=== PATIENT | female | born 1935 | race Hispanic/Latino ===

== ENCOUNTER 2017-07-21 20:17 | Emergency (ER) | payer MEDICARE ==
[~2017-07-21 20:17] MED LIST: BACTRIM DS TAB1 EACH PO; CARVEDILOL12.5 MG PO
[2017-07-21 21:54] VITALS: BP 190/84
== END 2017-07-21 21:50 | disposition home or self-care (01) ==
LOC: FSED 20:17
DX: S60.222A Contusion of left hand, initial encounter (principal); W22.8XXA Striking against or struck by other objects, initial encounter; Y92.008 Other place in unspecified non-institutional (private) residence as the place of occurrence of the external cause
CPT/HCPCS: 99283

== ENCOUNTER 2017-09-22 23:06 | Inpatient (IN) | payer MEDICARE ==
[~2017-09-22] VITALS: Ht 160 cm; Wt 68.9 kg
[2017-09-22 23:42] LABS: BASOPHILS % 0.4 % (0.0-1.0); EOSINOPHILS # (AUTO) 0.2 (0.0-0.4); EOSINOPHILS % 2.3 % (0.0-6.0); HEMATOCRIT 40.6 % (34.2-44.1); HEMOGLOBIN 13.4 g/dL (12.0-16.0); LYMPHOCYTES # (AUTO) 0.5 (1.0-3.2); LYMPHOCYTES % 6.8 % (18.0-39.1); MEAN CORPUSCULAR HEMOGLOBIN 27.7 pg (28-32); MEAN CORPUSCULAR VOLUME 83.9 fL (81-99); MONOCYTES # (AUTO) 0.5 (0.2-0.8); MONOCYTES % 6.2 % (4.4-11.3); NEUTROPHILS # (AUTO) 6.2 (2.1-6.9); NEUTROPHILS % 83.9 % (38.7-80.0); PLATELET COUNT 223 x10e3/uL (140-360); RED BLOOD COUNT 4.84 x10e6/uL (3.6-5.1); RED CELL DISTRIBUTION WIDTH 14.2 % (11.7-14.4)
[2017-09-22 23:46] LABS: CLARITY,URINE HAZY (CLEAR); COLOR,URINE YELLOW (YELLOW)
[2017-09-22 23:47] LABS: BILIRUBIN,URINE 3+ (NEGATIVE); KETONES,URINE 1+ (NEGATIVE); LEUKOCYTE ESTERASE ,URINE 1+ (NEGATIVE); NITRITE,URINE NEGATIVE (NEGATIVE); PROTEIN,URINE DIPSTICK NEGATIVE (NEGATIVE); URINE UROBILINOGEN 0.2 mg/dL (0.2 - 1)
[2017-09-22] MEDS ORDERED: DIATRIZOATE MEGL/DIATRIZOA SOD 30 ML BTL PO ONE (23:52)
[2017-09-22 23:56] LABS: BACTERIA,URINE MANY /HPF; EPITHELIAL CELLS,URINE MODERATE /LPF; WBC,URINE (MAN) 21-50 /HPF (0-5)
[2017-09-23] VITALS (7 sets, daily range): BP systolic 129–155; BP diastolic 61–78
[2017-09-23 00:05] LABS: ALBUMIN 3.7 g/dL (3.5-5.0); ALBUMIN/GLOBULIN RATIO 0.9 (0.8-2.0); ALKALINE PHOSPHATASE 305 IU/L (40-150); AMYLASE 53 U/L (25-125); ANION GAP 12.6 mmol/L (8-16); BLOOD UREA NITROGEN 6 mg/dL (7-26); BUN/CREATININE RATIO 7 (6-25); CALCIUM 9.4 mg/dL (8.4-10.2); CARBON DIOXIDE 24 mmol/L (22-29); CHLORIDE 103 mmol/L (98-107); CREATININE, SERUM 0.83 mg/dL (0.57-1.11); EST GLOMERULAR FILTRATION RATE > 60 ML/MIN (60-); GLUCOSE 131 mg/dL (74-118); LIPASE 33 U/L (8-78); POTASSIUM 3.6 mmol/L (3.5-5.1); SODIUM 136 mmol/L (136-145)
[2017-09-23 00:37] LABS: ALANINE AMINOTRANSFERASE 245 IU/L (0-55)
--- NOTE | 2017-09-23 01:47 | Diagnostic Imaging Report ---
EXAM: CT ABDOMEN AND PELVIS with IV CONTRAST DATE: 09/23/2017 11:16 PM Time stamp on Exam: 0126 hours INDICATION: Fever, lower abdominal pain COMPARISON: None TECHNIQUE: The abdomen and pelvis were scanned using a multidetector helical scanner. Coronal and sagittal reformations were obtained. Routine protocol performed. IV Contrast: 100 cc Isovue-370 Oral Contrast: Gastrografin CTDIvol has been reviewed. It is below the limits set by the Radiation Protocol Committee (RPC). FINDINGS: LOWER THORAX: No consolidations LIVER: No masses BILIARY: Cholecystectomy. No ductal dilation. SPLEEN: No masses PANCREAS: No masses ADRENALS: No nodules KIDNEYS: Symmetric perfusion. No enhancing masses. No hydronephrosis. GI TRACT: Severe sigmoid colon diverticulosis with mild wall thickening and mild surrounding inflammation. No bowel obstruction. VESSELS: Unremarkable PERITONEUM/RETROPERITONEUM: No free air or fluid LYMPH NODES: No lymphadenopathy REPRODUCTIVE ORGANS: Unremarkable BLADDER: Decompressed SOFT TISSUES: Unremarkable BONES: No suspicious bone lesions. IMPRESSION: Findings are consistent with acute on chronic sigmoid colon diverticulitis. No abscess formation or free peritoneal air. Signed by: Dr. Cheryl Alonso M.D. on 09/23/2017 1:43 AM
[2017-09-23] MEDS ORDERED: MORPHINE SULFATE 2 MG/ML SYR IV PRN (02:00)
[2017-09-23] MEDS: ONDANSETRON HCL INJ 2 MG/ML VIAL IV PRN (02:40)
[2017-09-23] MEDS: METRONIDAZOLE 500MG/NS 100ML 100 ML IV SCH ×5 (02:40→23:28)
[2017-09-23] MEDS: SODIUM CHLORIDE 0.9% 1000ML 1,000 ML IV SCH ×4 (02:40→23:28)
[2017-09-23] MEDS ORDERED: SODIUM CHLORIDE 0.9% 50ML 50 ML ONE (02:46)
[2017-09-23] MEDS ORDERED: IOPAMIDOL 370 MG/ML 200 ML INFUS..BTL INJ ONE (02:47)
[2017-09-23] MEDS: LEVOFLOXACIN 500MG/D5W 100ML IV SCH (04:07)
[2017-09-23] MEDS: IBUPROFEN 400 MG TAB PO PRN ×2 (04:08→16:04)
[2017-09-23 04:15] LABS: PLATELET ESTIMATE ADEQUATE; PLATELET MORPHOLOGY COMMENT NORMAL; RBC MORPHOLOGY COMMENT NORMAL
[2017-09-23] MEDS: FAMOTIDINE 20 MG/2 ML VIAL IV SCH ×2 (10:00→20:21)
--- NOTE | 2017-09-23 10:17 | History and Physical ---
PRIMARY CARE PHYSICIAN: Dr. Enamorado. CHIEF COMPLAINT: Abdominal pain. HISTORY OF PRESENT ILLNESS: This is an 82-year-old woman with history of hypertension, now developing lower abdominal discomfort for the past day, prompting a visit to the hospital. She has some nausea. No diarrhea. Denies any fever, chills, sweats. Denies any headache. PAST MEDICAL HISTORY: Hypertension. PAST SURGICAL HISTORY 1. Breast biopsy, which was benign. 2. Tubal ligation. 3. Other GI procedure, which the patient does not recall, possibly EGD. ALLERGIES: PER ELECTRONIC MEDICAL RECORD. FAMILY/SOCIAL HISTORY: The patient is single. She has 4 sons. No alcohol, illicits or cigarettes. MEDICATIONS: Per electronic medical record. REVIEW OF SYSTEMS: Denies any dizziness, chest pain, shortness of breath, fever, chills, sweats, leg pain, back pain, headache, blurred vision. PHYSICAL EXAMINATION VITAL SIGNS: Reviewed. T-max 100.8. GENERAL: A tired-appearing woman resting in bed. HEENT: Anicteric. CARDIOVASCULAR: Normal S1 and S2. LUNGS: She has moderate breath sounds. ABDOMEN: Soft, nondistended. She has mild tenderness in the left lower quadrant. Negative Albert's sign. EXTREMITIES: No edema or calf tenderness. NEUROLOGIC: Alert and oriented times 3. She moves all extremities. SKIN: Dry. PSYCHIATRIC: Normal affect. LABS: Reviewed. MEDICATIONS: Reviewed. ASSESSMENT: This is an 82-year-old woman. 1. Fever. 2. Transaminitis. 3. Hyperbilirubinemia. 4. Acute sigmoid diverticulitis. 5. Urinary tract infection. 6. Left lower abdominal pain. PLAN 1. N.P.O. status. 2. IV fluids. 3. GI consultation. 4. Hepatitis panel. 5. Flagyl and Levaquin. 6. P.R.N. pain medication. 7. SCDs for DVT prophylaxis. 8. IV Pepcid. Job#: [id number]
--- NOTE | 2017-09-23 11:54 | Consultation ---
DATE OF CONSULTATION: September 23, 2017 This is an 82-year-old lady who presented to the hospital because of abdominal pain, which is mainly in the left lower quadrant area. The patient also has some fever and a little bit of diarrhea. The workup so far revealed that her CBC was normal, and her liver enzymes were elevated with AST of 158, ALT 245, and alk phos of 305. Bilirubin was also 4.7. She denies any nausea or vomiting along with this problem. Her hepatitis profile is pending. She did have a CT scan of the abdomen and pelvis on admission, which shows [id number] sigmoid diverticulitis. There is no abscess or perforation. As far as the liver is concerned, she is status post cholecystectomy, but there is no biliary dilatation. Her other medical problems are significant for history of hypertension, previous tubal ligation, also cholecystectomy. She said her last colonoscopy was quite some time ago, more than 10 years. ALLERGIES: NONE. SOCIAL HISTORY: No alcohol use. FAMILY HISTORY: Noncontributory. REVIEW OF SYSTEMS: Denies any chest pain or shortness of breath. Denies any dysphagia or odynophagia. Denies any dysuria or hematuria or any kind of syncopal episode. PHYSICAL EXAMINATION GENERAL: The patient is awake, alert, appears to be stable, not in acute distress at this point. VITAL SIGNS: Afebrile with stable vital signs. HEAD, EYES, EARS, NOSE AND THROAT: Normocephalic and atraumatic. Sclerae are mildly icteric. NECK: Supple. HEART: Regular. LUNGS: Clear. ABDOMEN: Soft. There is some tenderness mainly in the left lower quadrant area. There is no rebound or mass. EXTREMITIES: No clubbing. LAB VALUES: Significant for CBC is okay. Liver enzymes are as mentioned before. CAT scan is consistent with acute sigmoid diverticulitis. IMPRESSION 1. Sigmoid diverticulitis. 2. Elevated liver function tests. RECOMMENDATIONS: At this point, hepatitis profile is pending. The plan is to continue antibiotic for now. I will obtain an MRCP for further evaluation and follow labs. Job#: [id number] cc:MD NEYDA THAKUR MD
--- NOTE | 2017-09-23 16:10 | Diagnostic Imaging Report ---
EXAM: MRI MRCP WO DATE: 09/23/2017 9:09 AM INDICATION: Abdominal pain. COMPARISON: CT dated 09/23/2017 TECHNIQUE: MRCP protocol performed using1.5 Meri. Sequences obtained include axial T2 FRFSE FS, coronal and axial T2 SSFSE, SSFSE coronal spins. FINDINGS: The gallbladder is surgically absent. The common bile duct is normal in caliber measuring 0.6 cm. There are no filling defects or strictures. No intrahepatic biliary dilation. Within the limitations of the exam, the liver, spleen, pancreas and adrenal glands are unremarkable. No hydronephrosis. Possible small bilateral parapelvic renal cysts. No upper abdominal free fluid or lymphadenopathy. The soft tissues and bones are unremarkable. IMPRESSION: Unremarkable MRCP. No common bile duct dilatation or evidence of choledocholithiasis. Signed by: Dr. Bernardo Lai MD on 09/23/2017 4:07 PM
[2017-09-24] VITALS (7 sets, daily range): BP systolic 140–189; BP diastolic 60–85
[2017-09-24] MEDS: LEVOFLOXACIN 500MG/D5W 100ML IV SCH (02:26)
[2017-09-24 04:44] LABS: BASOPHILS % 0.8 % (0.0-1.0); EOSINOPHILS # (AUTO) 0.2 (0.0-0.4); EOSINOPHILS % 5.8 % (0.0-6.0); HEMATOCRIT 34.4 % (34.2-44.1); HEMOGLOBIN 11.1 g/dL (12.0-16.0); LYMPHOCYTES # (AUTO) 0.6 (1.0-3.2); LYMPHOCYTES % 15.9 % (18.0-39.1); MEAN CORPUSCULAR HEMOGLOBIN 27.9 pg (28-32); MEAN CORPUSCULAR HGB CONC 32.3 g/dL (31-35); MEAN CORPUSCULAR VOLUME 86.4 fL (81-99); MONOCYTES # (AUTO) 0.4 (0.2-0.8); MONOCYTES % 9.5 % (4.4-11.3); NEUTROPHILS # (AUTO) 2.6 (2.1-6.9); NEUTROPHILS % 67.7 % (38.7-80.0); PLATELET COUNT 184 x10e3/uL (140-360); RED BLOOD COUNT 3.98 x10e6/uL (3.6-5.1); RED CELL DISTRIBUTION WIDTH 14.4 % (11.7-14.4)
[2017-09-24 05:19] LABS: ALANINE AMINOTRANSFERASE 167 IU/L (0-55); ALBUMIN 2.8 g/dL (3.5-5.0); ALBUMIN/GLOBULIN RATIO 0.9 (0.8-2.0); ALKALINE PHOSPHATASE 244 IU/L (40-150); AMYLASE 36 U/L (25-125); ANION GAP 11.1 mmol/L (8-16); BLOOD UREA NITROGEN 7 mg/dL (7-26); BUN/CREATININE RATIO 11 (6-25); CALCIUM 8.4 mg/dL (8.4-10.2); CARBON DIOXIDE 23 mmol/L (22-29); CHLORIDE 109 mmol/L (98-107); CREATININE, SERUM 0.64 mg/dL (0.57-1.11); EST GLOMERULAR FILTRATION RATE > 60 ML/MIN (60-); GLUCOSE 84 mg/dL (74-118); LIPASE 24 U/L (8-78); POTASSIUM 3.1 mmol/L (3.5-5.1); SODIUM 140 mmol/L (136-145)
[2017-09-24] MEDS: METRONIDAZOLE 500MG/NS 100ML 100 ML IV SCH ×3 (06:00→18:00)
[2017-09-24] MEDS ORDERED: POTASSIUM CHLORIDE 20MEQ/100ML 200 ML IV ONE (06:45)
[2017-09-24 07:57] LABS: BILIRUBIN,URINE 1+ (NEGATIVE); CLARITY,URINE CLEAR (CLEAR); COLOR,URINE YELLOW (YELLOW); KETONES,URINE 2+ (NEGATIVE); LEUKOCYTE ESTERASE ,URINE TRACE (NEGATIVE); NITRITE,URINE NEGATIVE (NEGATIVE); PROTEIN,URINE DIPSTICK NEGATIVE (NEGATIVE); URINE UROBILINOGEN 0.2 mg/dL (0.2 - 1)
[2017-09-24 08:03] LABS: BACTERIA,URINE FEW /HPF
[2017-09-24 08:04] LABS: EPITHELIAL CELLS,URINE FEW /LPF; MUCUS,URINE MANY (RARE)
[2017-09-24] MEDS: FAMOTIDINE 20 MG/2 ML VIAL IV SCH ×2 (08:46→20:43)
[2017-09-24] MEDS: SODIUM CHLORIDE 0.9% 1000ML 1,000 ML IV SCH ×2 (09:59→17:59)
[2017-09-24] MEDS: LABETALOL HCL 5 MG/ML 20ML VIAL IV SCH ×2 (12:00→18:00)
--- NOTE | 2017-09-24 23:00 | Consultation ---
DATE OF CONSULTATION: September 24, 2017 GI CONSULT NOTE REASONS FOR CONSULTATION 1. Acute onset of lower abdominal pain for 2 days. 2. Fever times 2 days. 3. Acute abnormal liver enzymes. HISTORY OF PRESENT ILLNESS: [id number] very pleasant white female with past medical history of hypertension, who got admitted through the emergency room with 2 days' history of lower abdominal discomfort associated with some fever or chills. CT scan of the of the abdomen done that showed diverticulitis without any local complications. Blood work revealed abnormal liver enzymes. She is status post cholecystectomy. MRCP is negative for any biliary ductal obstruction, common bile duct 6 mm in maximum diameter. Patient is currently being treated with intravenous levofloxacin and metronidazole. In the last 24 hours, her fever has resolved. Abdominal pain has also disappeared. She was on clear liquid diet, which she tolerated well. Diet has been advanced to solid food this evening, which she tolerated it very well. Patient has had upper endoscopy and colonoscopy more than 10 years ago. She has no history of any viral hepatitis. REVIEW OF SYSTEMS: Twelve-point systems DICTATION CANCELLED (02:47) Job#: [id number]
[2017-09-25] VITALS (7 sets, daily range): BP systolic 149–199; BP diastolic 67–86
[2017-09-25] MEDS: LABETALOL HCL 5 MG/ML 20ML VIAL IV SCH ×2 (00:22→05:45)
[2017-09-25] MEDS: METRONIDAZOLE 500MG/NS 100ML 100 ML IV SCH ×2 (00:22→05:45)
[2017-09-25] MEDS: SODIUM CHLORIDE 0.9% 1000ML 1,000 ML IV SCH ×3 (01:53→18:02)
[2017-09-25] MEDS: LEVOFLOXACIN 500MG/D5W 100ML IV SCH (01:53)
[2017-09-25 04:50] LABS: ALBUMIN 2.8 g/dL (3.5-5.0); BILIRUBIN,DIRECT 4.1 mg/dL (0.0-0.5)
[2017-09-25 06:12] LABS: ANION GAP 11.3 mmol/L (8-16); BLOOD UREA NITROGEN 7 mg/dL (7-26); BUN/CREATININE RATIO 10 (6-25); CALCIUM 8.5 mg/dL (8.4-10.2); CARBON DIOXIDE 21 mmol/L (22-29); CHLORIDE 110 mmol/L (98-107); CREATININE, SERUM 0.68 mg/dL (0.57-1.11); EST GLOMERULAR FILTRATION RATE > 60 ML/MIN (60-); GLUCOSE 82 mg/dL (74-118); POTASSIUM 3.3 mmol/L (3.5-5.1); SODIUM 139 mmol/L (136-145)
[2017-09-25] MEDS: FAMOTIDINE 20 MG/2 ML VIAL IV SCH ×2 (09:02→21:10)
[2017-09-25] MEDS: IBUPROFEN 400 MG TAB PO PRN (09:06)
[2017-09-25] MEDS ORDERED: POTASSIUM CHLORIDE 20 MEQ TAB CR PO ONE (10:30)
[2017-09-25] MEDS ORDERED: METRONIDAZOLE 500 MG TAB PO SCH (12:30)
[2017-09-25] MEDS: ONDANSETRON HCL INJ 2 MG/ML VIAL IV PRN (12:31)
[2017-09-25] MEDS: METRONIDAZOLE 500 MG TAB PO SCH ×2 (18:02→22:54)
[2017-09-25] MEDS ORDERED: NIFEDIPINE CR 30 MG TAB PO ONE (21:00)
[2017-09-25] MEDS ORDERED: LABETALOL HCL 100 MG TAB PO SCH (21:00)
[2017-09-25] MEDS: NIFEDIPINE CR 30 MG TAB PO SCH (21:10)
[2017-09-25] MEDS: ALPRAZOLAM 0.5 MG TAB PO SCH (21:12)
[2017-09-25] MEDS: LABETALOL HCL 100 MG TAB PO SCH (21:12)
[2017-09-26] VITALS: BP 152/68
[2017-09-26] MEDS: LEVOFLOXACIN 500MG/D5W 100ML IV SCH (02:41)
[2017-09-26] MEDS: SODIUM CHLORIDE 0.9% 1000ML 1,000 ML IV SCH ×2 (02:41→09:03)
[2017-09-26] MEDS: METRONIDAZOLE 500 MG TAB PO SCH (05:52)
[2017-09-26 06:02] VITALS: BP 119/59
[2017-09-26] MEDS ORDERED: LABETALOL HCL100 MG PO (06:53)
[2017-09-26] MEDS ORDERED: FLAGYL500 MG PO (06:53)
[2017-09-26] MEDS ORDERED: PEPCID20 MG PO (06:53)
[2017-09-26] MEDS ORDERED: NIFEDIPINE ER30 M1 PO (06:53)
[2017-09-26] MEDS ORDERED: ALPRAZOLAM0.5 MG PO (06:53)
[2017-09-26 08:00] VITALS: BP 102/65
[2017-09-26 08:20] VITALS: BP 102/65
--- NOTE | 2017-09-26 08:28 | Progress Note ---
DATE: September 24, 2017 TIME: 7:15 a.m. OVERNIGHT: No events. REVIEW OF SYSTEMS: Denies any dizziness or chest pain. Denies any back pain, headache, blurred vision. Denies any nausea, vomiting, diarrhea. Denies any foot pain. PHYSICAL EXAMINATION VITAL SIGNS: Reviewed. GENERAL: A tired-appearing woman resting in bed. HEENT: Anicteric. CARDIOVASCULAR: Normal S1 and S2. LUNGS: Moderate breath sounds. ABDOMEN: Soft and nondistended. She has mild tenderness in the left lower quadrant. EXTREMITIES: No edema. SKIN: Dry. PSYCHIATRIC: Normal affect. NEUROLOGICAL: Alert and appropriate. LABS: Reviewed. MEDICATIONS: Reviewed. ASSESSMENT: An 82-year-old woman with: 1. Fever. 2. Transaminitis. 3. Hyperbilirubinemia. 4. Acute sigmoid diverticulitis. 5. Urinary tract infection. 6. Left lower abdominal pain. PLAN 1. Clear liquid diet. 2. IV fluids. 3. Replace potassium. 4. Bilirubin still elevated. 5. Check urine culture. 6. MRCP was negative. Job#: [id number]
[2017-09-26] MEDS ORDERED: POTASSIUM CHLORIDE 20 MEQ TAB CR PO ONE (08:30)
[2017-09-26] MEDS: LABETALOL HCL 100 MG TAB PO SCH (09:00)
[2017-09-26] MEDS: NIFEDIPINE CR 30 MG TAB PO SCH (09:00)
[2017-09-26] MEDS: FAMOTIDINE 20 MG/2 ML VIAL IV SCH (09:02)
[2017-09-26] MEDS: ALPRAZOLAM 0.5 MG TAB PO SCH (09:03)
--- NOTE | 2017-09-26 09:07 | Discharge Summary ---
PRINCIPAL DIAGNOSES 1. Acute transaminitis. 2. Acute hyperbilirubinemia. 3. Acute sigmoid diverticulitis. 4. Urinary tract infection. 5. Hypokalemia. SECONDARY DIAGNOSIS: Hypertension. CHIEF COMPLAINT: Abdominal pain. HISTORY OF PRESENT ILLNESS: This is an 82-year-old woman with abdominal pain. Please refer to the H and P for further details. HOSPITAL COURSE: The patient was found to have abdominal pain. Found to have acute diverticulitis in the sigmoid colon. Also found to have a urinary tract infection and hyperbilirubinemia with transaminitis. The patient received IV fluids, bowel rest and antibiotics. She is doing better, but the bilirubin remains elevated. She was instructed to follow up as outpatient with GI services next week. CONDITION ON DISCHARGE: Stable. FOLLOWUP 1. With primary care doctor in 1 week. 2. Follow up with GI service in 1 week. URSZULA MORILLO MD Job#: [id number]
--- NOTE | 2017-09-26 09:46 | Progress Note ---
DATE: September 25, 2017 TIME: 7:15 a.m. OVERNIGHT: No events. REVIEW OF SYSTEMS: Denies any dizziness, chest pain, shortness of breath, fever, chills, nausea, vomiting, diarrhea, back pain or headache. PHYSICAL EXAMINATION VITAL SIGNS: Reviewed. GENERAL: A tired-appearing woman resting in bed. HEENT: Anicteric. CARDIOVASCULAR: Normal S1 and S2. LUNGS: Moderate breath sounds. ABDOMEN: Soft. She has mild tenderness in the abdomen. EXTREMITIES: No edema or calf tenderness. SKIN: Dry. PSYCHIATRIC: Flat affect. LABS: Reviewed. MEDICATIONS: Reviewed. ASSESSMENT: An 82-year-old woman with 1. Fever. 2. Transaminitis. 3. Hypokalemia. 4. Acute sigmoid diverticulitis. 5. Urinary tract infection. 6. Left lower abdominal pain. PLAN 1. IV fluids. 2. Clear liquid diet. 3. Hepatitis panel followup. 4. MRCP negative. 5. Bilirubin still elevated. 6. Follow up GI recommendations. Job#: [id number]
== END 2017-09-26 09:17 | disposition home or self-care (01) | DRG 392 ==
LOC: ER 23:06 → ERHOLD 09-23 01:59 → MED/SURG2 09-23 03:12
PROVIDERS: ADMIT Internal Medicine; ATTEND Internal Medicine
DX: K57.92 Diverticulitis of intestine, part unspecified, without perforation or abscess without bleeding (principal); N39.0 Urinary tract infection, site not specified; R94.5 Abnormal results of liver function studies; R74.0 Nonspecific elevation of levels of transaminase and lactic acid dehydrogenase [LDH]; E80.6 Other disorders of bilirubin metabolism; K57.32 Diverticulitis of large intestine without perforation or abscess without bleeding; E87.6 Hypokalemia
CPT/HCPCS: 36415; 74177; 74181; 80048; 80053; 80076; 81001; 82150; 82248; 83605; 83690; 84132; 85025; 86039; 86255; 87086; 93005; 99284; J1956; J2270; J2405; J3480; J7030; Q9967

== ENCOUNTER 2021-03-14 07:24 | Emergency (ER) | payer MEDICARE ==
[~2021-03-14] VITALS: Ht 160 cm; Wt 68.9 kg
[~2021-03-14 07:24] MED LIST changes: +ALPRAZOLAM0.5 MG PO; +FLAGYL500 MG PO; +LABETALOL HCL100 MG PO; +NIFEDIPINE ER30 M1 PO; +PEPCID20 MG PO
[2021-03-14] MEDS ORDERED: SODIUM CHLORIDE 0.9% 1000ML 1,000 ML IV SCH (07:45)
[2021-03-14] MEDS ORDERED: FENTANYL CITRATE/PF 100MCG/2 ML INJ IV PRN (07:45)
[2021-03-14 07:52] LABS: BASOPHILS % 0.8 % (0.0-1.0); EOSINOPHILS # (AUTO) 0.1 (0.0-0.4); EOSINOPHILS % 3.6 % (0.0-6.0); HEMOGLOBIN 12.8 g/dL (12.0-16.0); LYMPHOCYTES # (AUTO) 1.3 (1.0-3.2); MEAN CORPUSCULAR HEMOGLOBIN 26.9 pg (28-32); MEAN CORPUSCULAR VOLUME 84.2 fL (81-99); MONOCYTES # (AUTO) 0.3 (0.2-0.8); MONOCYTES % 8.3 % (4.4-11.3); NEUTROPHILS # (AUTO) 1.8 (2.1-6.9); PLATELET COUNT 243 x10e3/uL (140-360); RED BLOOD COUNT 4.75 x10e6/uL (3.6-5.1); RED CELL DISTRIBUTION WIDTH 13.2 % (11.7-14.4)
[2021-03-14 08:09] LABS: ALBUMIN 3.7 g/dL (3.5-5.0); ANION GAP 12.9 mmol/L (8-16); CREATININE, SERUM 0.82 mg/dL (0.57-1.11); POTASSIUM 3.9 mmol/L (3.5-5.1)
[2021-03-14 08:45] LABS: CLARITY,URINE CLEAR (CLEAR); COLOR,URINE YELLOW (YELLOW); KETONES,URINE NEGATIVE (NEGATIVE); LEUKOCYTE ESTERASE ,URINE SMALL (NEGATIVE); NITRITE,URINE NEGATIVE (NEGATIVE); PROTEIN,URINE DIPSTICK NEGATIVE (NEGATIVE); URINE UROBILINOGEN 0.2 mg/dL (0.2 - 1)
[2021-03-14 08:50] LABS: AMORPHOUS SEDIMENT,URINE FEW (FEW); BACTERIA,URINE RARE /HPF
[2021-03-14] MEDS ORDERED: SODIUM CHLORIDE 0.9% 50ML 50 ML ONE (09:08)
[2021-03-14] MEDS ORDERED: IOPAMIDOL 370 MG/ML 200 ML INFUS..BTL INJ ONE (09:09)
[2021-03-14] MEDS ORDERED: OMEPRAZOLE40 MG PO (10:58)
[2021-03-14 11:13] VITALS: BP 158/87
== END 2021-03-14 11:15 | disposition home or self-care (01) ==
LOC: ER 07:33
DX: R10.13 Epigastric pain (principal); Z90.49 Acquired absence of other specified parts of digestive tract; I10 Essential (primary) hypertension; Z88.1 Allergy status to other antibiotic agents; Z88.0 Allergy status to penicillin; Z88.8 Allergy status to other drugs, medicaments and biological substances
CPT/HCPCS: 36415; 71045; 74177; 80053; 81001; 83690; 84484; 85025; 93005; 99284; C9113; J3010; Q9967